=== PATIENT | female | born 1930 | race African-American/Black ===

== ENCOUNTER 2016-05-16 19:04 | Inpatient (IN) | payer MEDICARE, BC ==
--- NOTE | ~2016-05-16 | HP ---
History And Physical [facility] [id number] [place]. [address] NAME: PAULO MCKINLEY : 32 STATUS : ADM [place] PAT#: [id number] AGE: 85 ADM/REG DATE : 05/16/16 MR#: [id number] REPORT SERV DATE: 05/17/16 DICTATED BY: LEE BUCHANAN DATE: 05/17/16 REPORT STATUS : Draft TRANSCRIBED BY: MODL DATE: 05/17/16 DATE OF ADMISSION: 05/17/2016 CARDIOLOGY ADMISSION NOTE ADMISSION DIAGNOSIS: [id number] OR. HISTORY OF PRESENT ILLNESS: Ms. Mckinley is an 85-year-old female, who presented to the emergency room yesterday evening for evaluation of exertional shortness of breath and arm pain. She reports onset of symptoms at approximately 5:00 p.m. and progression of symptoms, prompting evaluation in the ER at approximately 9:00 p.m., at which point her symptoms were resolved after administration of aspirin and nitroglycerin paste. She denies any chest discomfort, but has had discomfort in both arms that was worse by walking up stairs. She denies any symptoms like this before. She denies any palpitations, presyncope/syncope. PAST MEDICAL HISTORY: Notable for hypertension, borderline diabetes, hyperlipidemia. She has no history of coronary heart disease, but did have a catheterization many years ago. MEDICATIONS: Lisinopril, pravastatin, omega-3 fatty acids. ALLERGIES: NONE. FAMILY HISTORY: The patient does not know her parents' history. Her daughter possibly has mitral valve prolapse. SOCIAL HISTORY: The patient is single. Her son lives with her in a multilevel house. She is a former smoker, but quit in the 80s after 60 pack years. She drinks alcohol very rarely. She has four children and one daughter and granddaughter in the room with her. REVIEW OF SYSTEMS: As per HPI. Otherwise, negative. PHYSICAL EXAMINATION: VITAL SIGNS: Temperature 97.8, pulse 55, blood pressure 123/58, with earlier blood pressure documented as 211/91, respiratory rate 18, and 96% on room air. GENERAL: Appears comfortable. HEENT: Sclerae anicteric; mucous membranes moist. NECK: No JVD. Thyroid not tender or enlarged CARDIOVASCULAR: Regular rhythm with normal S1/S2. No murmurs, rubs, or gallop. PULMONARY: Lung ch CTA. ABDOMEN: Soft, nontender, no masses EXTREMITIES: Warm, no edema. NEUROLOGIC: Grossly without deficits. LABORATORY DATA: Reviewed. Notable for creatinine of 0.77, potassium 3.8, hemoglobin 13.1, platelets 256. INR 1.0. Troponin initial value was 0.6, with followup value of 1.34. History And Physical [address] [address] NAME: PAULO MCKINLEY : 32 STATUS : ADM [place] PAT#: [id number] AGE: 85 ADM/REG DATE : 05/16/16 MR#: [id number] REPORT SERV DATE: 05/17/16 DICTATED BY: LEE BUCHANAN DATE: 05/17/16 REPORT STATUS : Draft TRANSCRIBED BY: TG DATE: 05/17/16 STUDIES: EKG demonstrates sinus rhythm, heart rate 51, T-wave inversions V2 through V6 as well as in I and aVL, but without significant ST depressions. These changes are new compared to prior EKG dated 05/16/2016, time 1932 hours, at which time, there were less prominent T-wave inversions. Telemetry demonstrates sinus rhythm. IMPRESSION/RECOMMENDATIONS: 1. Elevated troponin and exertional shortness of breath, suggestive of [id number] myocardial infarction, likely due to acute coronary syndrome. 2. Hypertension. 3. Hyperlipidemia. 4. Former tobacco abuse. The patient has had improvement in her symptoms with nitroglycerin paste and is currently being managed with aspirin and heparin. I agree with this initial strategy and also agree that the patient should undergo cardiac catheterization as part of an early invasive strategy to define her anatomy with revascularization as indicated based on her findings. I have discussed the procedure in detail with her including major, minor complications, she is agreeable to proceed. We will hopefully be able to perform this evening with time to be determined by her clinical course. She is stable from a hemodynamic standpoint and based on her symptoms. Further recommendations forthcoming pending cath. BOB/TG Lee Buchanan MD / [id number] CC: Brennon Bowser M.D. Jennifer Krishnamurthy M.D.
[2016-05-16 19:39] LABS: BASOPHILS 0.2 %; BASOPHILS ABSOLUTE 0.02 10/3/uL (0.0-0.16); EOSINOPHILS 4.5 %; EOSINOPHILS ABSOLUTE 0.44 10/3/uL (0.0-0.53); HEMOGLOBIN 14.1 g/dL (12.0-16.0); IMMATURE GRANULOCYTES 0.2 %; IMMATURE GRANULOCYTES ABSOLUTE 0.02 10/3/uL (0.0-0.11); LYMPHOCYTES 22.6 %; LYMPHOCYTES ABSOLUTE 2.23 10/3/uL (0.67-4.30); MEAN CORPUS HGB CONC 35.3 g/dL (32.0-36.0); MEAN CORPUSCULAR HEMOGLOB 30.4 pg (26.0-34.0); MEAN CORPUSCULAR VOLUME 86.2 fL (80-100); MONOCYTES 4.5 %; MONOCYTES ABSOLUTE 0.44 10/3/uL (0.21-1.20); NEUTROPHILS ABSOLUTE 6.72 10/3/uL (2.02-8.40); PLATELET COUNT 262 10/3/uL (150-400); RED CELL COUNT 4.64 10/6/uL (4.0-5.6); WHITE BLOOD CELLS 9.9 10/3/uL (4.5-10.5)
[2016-05-16 19:40] LABS: MANUAL DIFF NO %
[2016-05-16 19:48] LABS: PARTIAL THROMBO TIME 24.8 SEC (22.5-37.2); PROTIME (NOT ORD) 13.1 SEC (12.0-14.5)
[2016-05-16 19:58] LABS: BUN (BLOOD UREA NITROGEN) 15 MG/DL (6-23); CALCIUM, SERUM 9.1 MG/DL (8.5-10.4); CHLORIDE, SERUM 103 MMOL/L (96-112); CO2 (CARBON DIOXIDE) 28 MMOL/L (24-34); CREATININE 0.77 MG/DL (0.55-1.02); GFR AFRICAN AMERICAN 82 ML/MIN (>=60); GFR NON AFRICAN AMERICAN 71 ML/MIN (>=60); GLUCOSE, SERUM 201 MG/DL (60-99); POTASSIUM, SERUM 3.8 MMOL/L (3.5-5.3); SODIUM, SERUM 140 MMOL/L (135-148)
[2016-05-16 20:00] LABS: CHEST PAIN PROFILE TAT 0 Hrs 27 Mins
[2016-05-16] MEDS ORDERED: OMEGA-3 PO (20:57)
[2016-05-16] MEDS ORDERED: PRAVACHOL80 MG PO (20:58)
[2016-05-16] MEDS ORDERED: PRIN5 PO (20:58)
[2016-05-17 03:41] LABS: BASOPHILS 0.2 %; BASOPHILS ABSOLUTE 0.02 10/3/uL (0.0-0.16); EOSINOPHILS 5.8 %; EOSINOPHILS ABSOLUTE 0.54 10/3/uL (0.0-0.53); HEMATOCRIT 36.4 % (36.0-48.0); HEMOGLOBIN 13.1 g/dL (12.0-16.0); IMMATURE GRANULOCYTES 0.2 %; IMMATURE GRANULOCYTES ABSOLUTE 0.02 10/3/uL (0.0-0.11); LYMPHOCYTES 39.6 %; LYMPHOCYTES ABSOLUTE 3.67 10/3/uL (0.67-4.30); MEAN CORPUSCULAR VOLUME 86.1 fL (80-100); MEAN PLATELET VOLUME 9.3 fL (9.2-13.0); MONOCYTES 5.3 %; MONOCYTES ABSOLUTE 0.49 10/3/uL (0.21-1.20); NEUTROPHILS 48.9 %; NEUTROPHILS ABSOLUTE 4.52 10/3/uL (2.02-8.40); PLATELET COUNT 256 10/3/uL (150-400); RBC DISTRIBUTION WIDTH 12.1 % (12.0-16.0); RED CELL COUNT 4.23 10/6/uL (4.0-5.6); WHITE BLOOD CELLS 9.3 10/3/uL (4.5-10.5)
[2016-05-17 03:42] LABS: MANUAL DIFF NO %
[2016-05-17 03:58] LABS: CHOL/HDL RATIO(NOT ORDER) 3.8 (0-5)
[2016-05-17 03:59] LABS: TROPONIN I 1.34 NG/ML (<0.05)
[2016-05-17 11:06] LABS: TROPONIN I 0.81 NG/ML (<0.05)
[2016-05-17 13:36] LABS: CHOL/HDL RATIO(NOT ORDER) 3.6 (0-5)
[2016-05-18] MEDS ORDERED: GLUCPH PO (14:17)
[2016-05-18] MEDS ORDERED: COREG3 PO (14:18)
[2016-05-18] MEDS ORDERED: ASAB PO (14:19)
== END 2016-05-18 15:12 | disposition home or self-care (01) | DRG 287 ==
LOC: ER 19:04 → CDU1 21:20
PROVIDERS: Emergency Medicine; Internal Medicine Clinical Cardiac Electrophysiology
PROC: 4A023N7 Measurement of Cardiac Sampling and Pressure, Left Heart, Percutaneous Approach (ICD-10-PCS; principal; 2016-05-17)
PROC: B2111ZZ Fluoroscopy of Multiple Coronary Arteries using Low Osmolar Contrast (ICD-10-PCS; 2016-05-17)
PROC: B2151ZZ Fluoroscopy of Left Heart using Low Osmolar Contrast (ICD-10-PCS; 2016-05-17)
DX: I51.81 Takotsubo syndrome (principal); I42.9 Cardiomyopathy, unspecified; I25.10 Atherosclerotic heart disease of native coronary artery without angina pectoris; I10 Essential (primary) hypertension; R73.03 Prediabetes; E78.5 Hyperlipidemia, unspecified; E78.00 Pure hypercholesterolemia, unspecified; I44.0 Atrioventricular block, first degree; E78.1 Pure hyperglyceridemia; Z87.891 Personal history of nicotine dependence; Z82.49 Family history of ischemic heart disease and other diseases of the circulatory system; Z90.49 Acquired absence of other specified parts of digestive tract
CPT/HCPCS: 71020; 80048; 80061; 82962; 83036; 83735; 84460; 84484; 85025; 85347; 85610; 85730; 93005; 93306; 93458; 96374; 99152; 99153; 99285; A9270-GY; C1769; C1887; C1894; J2250; J3010; Q9967